=== PATIENT | female | born 1990 | race Caucasian/White ===

== ENCOUNTER 2022-03-30 16:06 | Inpatient (IN) | payer BC, OTHER ==
[2022-03-30] MEDS ORDERED: LABETALOL 5 MG/ML VIAL MDV IVP STA (16:40)
[2022-03-30] MEDS ORDERED: CITRIC ACID-SODIUM CITRATE 15 ML CUP PO ONE (16:44)
[2022-03-30] MEDS ORDERED: fentaNYL (PF) 50 MCG/ML 2 ML AMP ONE (17:05)
[2022-03-30] MEDS ORDERED: SUCCINYLCHOLINE CHLORIDE 100 MG/5 ML SYR IV ONE (17:05)
[2022-03-30] MEDS ORDERED: OXYTOCIN 10 UNIT/ML 1 ML VIAL ONE (17:05)
[2022-03-30] MEDS ORDERED: GLYCOPYRROLATE 0.2 MG/ML 2 ML VIAL ONE (17:05)
[2022-03-30] MEDS ORDERED: PROPOFOL 10 MG/ML 20 ML VIAL IV ONE (17:05)
[2022-03-30] MEDS ORDERED: ONDANSETRON 4 MG/2 ML VIAL ONE (17:05)
[2022-03-30] MEDS ORDERED: HYDROmorphone (PF) 1 MG/ML ONE (17:05)
[2022-03-30] MEDS ORDERED: MORPHINE SULFATE (PF) 0.3 MG/0.3 ML SYR ONE (17:05)
[2022-03-30] MEDS ORDERED: DEXAMETHASONE SOD PHOSPHATE 10 MG/ML 1 ML VIAL ONE (17:05)
[2022-03-30] MEDS ORDERED: OXYTOCIN 30 UNITS/500 ML NS BAG IV ONE (17:05)
[2022-03-30 17:06] LABS: Basophils # (A) 0.1 k/uL (0-0.2); Basophils % (A) 1 %; Eosinophils # (A) 0.1 k/uL (0-0.7); Eosinophils % (A) 1 %; HCT 37.9 % (34.0-46.0); HGB 12.3 gm/dL (11.4-16.0); Lymphocytes # (A) 1.6 k/uL (1.0-4.8); Lymphocytes % (A) 17 %; MCH 30.5 pg (25.0-35.0); MCHC 32.4 g/dL (31.0-37.0); MCV 94.2 fL (80.0-100.0); Mean Platelet Volume 9.3; Monocytes # (A) 0.5 k/uL (0-1.0); Monocytes % (A) 6 %; Neutrophils # (A) 6.7 k/uL (1.3-7.7); Neutrophils % (A) 73 %; Platelet Count 152 k/uL (150-450); RBC 4.02 m/uL (3.80-5.40); RDW 12.6 % (11.5-15.5); WBC 9.1 k/uL (3.8-10.6)
[2022-03-30 17:13] LABS: ALT 12 U/L (4-34); AST 31 U/L (14-36); African American GFR (CKD) >90 (>60 ml/min/1.73 sqM); Blood Urea Nitrogen 16 mg/dL (7-17); LDH 476 U/L (313-618); Non-African American GFR(CKD) >90 (>60 ml/min/1.73 sqM); Uric Acid 5.4 mg/dL (3.7-7.4)
[2022-03-30 17:14] LABS: INR 0.8 (<1.2); Prothrombin Time 9.4 sec (9.0-12.0)
[2022-03-30] MEDS ORDERED: MAGNESIUM SULFATE-WATER PMX 4 GM in WATER FOR INJECTION 1 100ML.BAG IVPB ONE (17:34)
--- NOTE | 2022-03-30 18:04 | P.HPOB ---
History of Present Illness H&P Date: 03/30/22 Chief Complaint: Severe preeclampsia This is a 31-year-old female 1 para 0 EDC 04/13/2022 at 38 weeks gestation. Patient presented from the office with a breech presentation, blood pressure 160 10. Blood pressure on admission 178/110. IV labetalol was given. Labs were checked. Patient denied headache, visual changes, or right upper quadrant pain. Fetus has been active throughout the . Past medical history significant for anxiety and depression as well as uterine fibroids. Past surgical history finger surgery right middle finger after a dog bite in 2016, wisdom teeth extracted. Current medications labetalol 100 mg twice daily, vitamin daily, baby aspirin daily. ALLERGIES none known. Family history significant for hypertension, thyroid cancer, cardiac disease. Social history patient is a [employer] S[employer] carrier, she denies alcohol tobacco or drug use. Father of the baby Les is involved with the . Obstetric history blood type is O-, rubella status immune. VDRL testing, urine culture, hepatitis B surface antigen, HIV testing, gonorrhea and chlamydia cultures, group B strep cultures all negative. One-hour Glucola 82. On examination patient is 5 foot 4 inches, 164 pounds, blood pressure 178/110, repeat 200/120. Again IV labetalol given. General physical exam is within normal limits. Fundus is obvious E gravid, breech presentation by Joshua's maneuver confirmed by bedside ultrasound, reactive NST. 3+ protein in the urine dipstick, 2+ edema, 2+ reflexes. Impression: 38 week intrauterine , severe preeclampsia by blood pressure parameters, breech presentation. Plan: We will proceed with primary low transverse section. Antibiotic prophylaxis was given. Magnesium sulfate will be given after delivery. All risks and benefits reviewed. Review of Systems Constitutional: Reports as per [facility] Medications and Allergies Home Medications Medication Instructions Recorded Confirmed Type Labetalol [Trandate] 100 mg PO BID 03/30/22 03/30/22 History Allergies Allergy/AdvReac Type Severity Reaction Status Date / Time No Known Allergies Allergy Verified 03/30/22 16:37 Exam Intake and Output 03/30/22 03/30/22 03/30/22 06:59 14:59 22:59 Other: Weight 74.389 kg See dictation under HPI please Results Result Diagrams: 03/30/22 16:51 03/30/22 16:51 Assessment and Plan Assessment: 38 week intrauterine , severe preeclampsia, breech presentation. Plan: For primary low transverse section. All risks and benefits reviewed. Magnesium sulfate to be instituted after delivery. Antibiotics given.
[2022-03-30] MEDS ORDERED: SIMETHICONE 80 MG CHEWABLE PO PRN (18:10)
[2022-03-30] MEDS ORDERED: ONDANSETRON 4 MG/2 ML VIAL IVP PRN (18:10)
[2022-03-30] MEDS ORDERED: diphenhydrAMINE 50 MG CAP PO PRN (18:10)
[2022-03-30] MEDS ORDERED: diphenhydrAMINE 25 MG CAP PO PRN (18:10)
[2022-03-30] MEDS ORDERED: NALOXONE 0.4 MG/ML 1 ML VIAL IV PRN (18:10)
[2022-03-30] MEDS ORDERED: HYDROmorphone PCA 10 MG/50 ML BAG IV PRN (18:10)
[2022-03-30] MEDS ORDERED: ZOLPIDEM 5 MG TAB PO PRN (18:10)
[2022-03-30] MEDS ORDERED: METOCLOPRAMIDE 5 MG/ML 2 ML VIAL IVP PRN (18:10)
[2022-03-30] MEDS ORDERED: diphenhydrAMINE 50 MG/ML 1 ML VIAL IVP PRN ×2 (18:10)
--- NOTE | 2022-03-30 18:10 | P.OP ---
Date of Procedure: 03/30/22 Preoperative Diagnosis: Severe preeclampsia, 38 week , breech presentation Postoperative Diagnosis: Same, nuchal cord 2, 6 cm anterior uterine fibroid Procedure(s) Performed: Primary low transverse section Anesthesia: MECHELLE Surgeon: Melida Koroma Environmental Engineering Assistant #1: Mariia Avila Estimated Blood Loss (ml): 350 IV fluids (ml): 800 Urine output (ml): 150 Pathology: other (Placenta) Condition: stable Disposition: PACU Operative Findings: Liveborn female , nuchal cord 2, breech presentation, scores 9 and 9 Description of Procedure: Patient is brought to the operating suite where a spinal analgesia with Duramorph is attempted per Dr. Raymond. Antibiotics are given. Harrison catheter to direct drainage. Bicitra given. The patient is placed in the dorsal supine position with left lateral uterine displacement. The abdomen is prepped and draped in usual sterile fashion. Upon checking analgesic effect, patient still had very acute pain. Decision was made for general anesthetic. This was performed per the anesthesia staff. A low transverse skin incision is carried down through the skin and subcutaneous tissue which is approximately 2 cm deep. Fascia is isolated, scored, extended bilaterally with curved Garay scissors. Peritoneum is next identified and incised. There is no bowel or bladder involvement. The bladder is low from the operative field, bladder blade is placed. A low transverse uterine incision is made in this is extended with blunt dissection. The 's breech is delivered sacrum anterior. Pinard maneuver is used for lower extremities. The trunk is brought out, Pinard maneuver issues for upper extremities. The infant's head is delivered in a flexed position. Official delivery time of a liveborn female 1727 hours. There is a nuchal cord 2 that was reduced. Infant is then handed to waiting nurses for evaluation where scores of 9 and 9 at one and 5 minutes respectively are given. Placentas delivered manually, it is inspected and noted to be intact with trivascular cord. Infant weighs 6 lbs. 12 oz. or 3070 g. Placenta is sent to pathology for evaluation. Uterus is then externalized and m assaged. It is swept clean with a sterile sponge. Ovaries and tubes appear normal. There is a 6 cm anterior uterine fibroid that is noted as well. Uterus is closed in a double thickness layer with 0 Vicryl suture, first layer running locking, second layer imbricated. Bilateral gutters are inspected and cleaned. Uterus is massaged. It is gently placed back into the abdominal cavity after the abdomen is suctioned with suction on guard posterior to the uterus. Hemostasis is excellent. Peritoneum is allowed to close by secondary intention. The fascia is closed in a running stitch of 0 Vicryl with over ligation in the midline. Subcutaneous tissue is reapproximated with 3-0 Vicryl in a running stitch. 4-0 undyed Monocryl is used for final skin closure. Steri-Strips and Mastisol are applied to the wound. Urine is noted to be draining clear in the Harrison tube. Patient is brought back to the recovery room in good condition with a blood pressure of 114/55, pulse 60, 99% O2 saturation. Admitting labs including all preeclampsia labs are within normal limits. Magnesium sulfate 4 g loading doses given with a 2 g maintenance dose for 24 hours.
[2022-03-30] MEDS ORDERED: LACTATED RINGERS 1,000 ML IV SCH (18:15)
[2022-03-30] MEDS: MAGNESIUM SULFATE-WATER PMX 20 GM in WATER FOR INJECTION 1 500ML.BAG IV SCH (18:45)
[2022-03-30] MEDS: KETOROLAC 15 MG/ML 1 ML VIAL IVP SCH (19:08)
[2022-03-30] MEDS ORDERED: LABETALOL 5 MG/ML VIAL MDV IVP PRN ×3 (19:31)
[2022-03-30] MEDS ORDERED: hydrALAZINE HCL 20 MG/ML 1 ML VIAL IVP PRN (19:31)
[2022-03-31] MEDS: MAGNESIUM SULFATE-WATER PMX 20 GM in WATER FOR INJECTION 1 500ML.BAG IV SCH ×2 (05:17→15:56)
[2022-03-31] MEDS ORDERED: Rhogam IMMUNE GLOBULIN 1,500 UNIT/1 ML IM ONE (05:20)
[2022-03-31] MEDS ORDERED: KETOROLAC 15 MG/ML 1 ML VIAL IVP SCH (06:00)
--- NOTE | 2022-03-31 07:19 | P.PN ---
Progress Note - Text 03/31 644 31-year-old female status post , spinal was attempted with Duramorph but it was an adequate. The anesthetic was converted to general anesthesia and the patient was intubated for the proceeding. Patient seen and evaluated with a VAS of 0. No other anesthesia related issues noted
[2022-03-31] MEDS: KETOROLAC 15 MG/ML 1 ML VIAL IVP SCH ×3 (07:55→19:49)
[2022-03-31] MEDS: SENNOSIDES-DOCUSATE SODIUM 1 EACH TAB PO SCH ×2 (07:56→19:49)
--- NOTE | 2022-03-31 08:30 | P.PN ---
Subjective Progress Note Date: 03/31/22 Principal diagnosis: Postoperative day #1 Denies headache, visual changes, RUQ pain Objective - Vital Signs Vital signs: Vital Signs Temp 97.8 F 03/31/22 08:00 Pulse 82 03/31/22 08:00 Resp 16 03/31/22 08:00 BP 143/89 03/31/22 08:00 Pulse Ox 99 03/31/22 08:00 FiO2 Intake & Output 03/30/22 03/31/22 03/31/22 18:59 06:59 18:59 Intake Total 795 125 Output Total 1765 350 Balance -970 -225 Weight 74.843 kg Intake: IV 295 50 Magnesium Sulfate-Water 50 Pmx 20 gm In Water For Injection 1 500ml.bag @ 2 GM/HR 50 mls/hr IV .Q10H [facility] Rx#:[id number] Magnesium Sulfate-Water 100 Pmx 4 gm In Water For Injection 1 100ml.bag @ 300 mls/hr IVPB ONCE ONE Rx#:[id number] ceFAZolin 2 gm In Sodium 195 Chloride 0.9% 50 ml @ 100 mls/hr IVPB ONCE ONE Rx# :[id number] Intake, IV Titration 500 75 Amount Lactated Ringers 1,000 ml 75 @ 75 mls/hr IV .[id number] [facility] Rx#:[id number] Magnesium Sulfate-Water 500 Pmx 20 gm In Water For Injection 1 500ml.bag @ 2 GM/HR 50 mls/hr IV .Q10H [facility] Rx#:[id number] Output: Urine 1765 350 Other: Voiding Method Indwelling Catheter Indwelling Catheter - Constitutional General appearance: Present: average body habitus, cooperative - EENT Eyes: Present: PERRLA ENT: Present: hearing grossly normal - Neck Neck: Present: normal ROM - Respiratory Respiratory: bilateral: CTA - Cardiovascular Rhythm: regular - Gastrointestinal General gastrointestinal: Present: normal bowel sounds - Neurologic Neurologic: Present: CNII-XII intact - Musculoskeletal Musculoskeletal: Present: strength equal bilaterally - Psychiatric Psychiatric: Present: A&O x's 3, appropriate affect, intact judgment & insight - Labs CBC & Chem 7: 03/30/22 16:51 03/30/22 16:51 Assessment and Plan Assessment: Doing well post operative day #1 Plan: Taper magnesium at 5 PM, off at 6 PM. Procardia XL 60 mg once daily, to be given now. Continue postoperative care. Discontinue LENS ENGRAVER at 1800 hrs. and advance diet at that time. Continue close maternal monitoring. Time with Patient: Less than 30
[2022-03-31 09:26] LABS: Basophils % (A) 0 %; Eosinophils % (A) 0 %; HCT 33.5 % (34.0-46.0); HGB 11.2 gm/dL (11.4-16.0); Lymphocytes # (A) 1.2 k/uL (1.0-4.8); Lymphocytes % (A) 7 %; MCH 31.3 pg (25.0-35.0); MCHC 33.5 g/dL (31.0-37.0); MCV 93.3 fL (80.0-100.0); Mean Platelet Volume 9.1; Monocytes # (A) 0.8 k/uL (0-1.0); Monocytes % (A) 5 %; Neutrophils # (A) 13.9 k/uL (1.3-7.7); Neutrophils % (A) 87 %; Platelet Count 149 k/uL (150-450); RDW 12.6 % (11.5-15.5); WBC 16.1 k/uL (3.8-10.6)
[2022-03-31] MEDS: IBUPROFEN 600 MG TAB PO SCH ×3 (10:52→20:57)
[2022-03-31] MEDS: ACETAMINOPHEN TAB 500 MG TAB PO SCH ×2 (11:10→17:02)
[2022-03-31] MEDS: LACTATED RINGERS 1,000 ML IV SCH (20:25)
[2022-03-31] MEDS ORDERED: HYDROcodone/APAP 5-325MG 1 EACH TAB PO PRN (22:30)
[2022-03-31] MEDS ORDERED: ACETAMINOPHEN IV (For NPO) 1,000 MG in EMPTY BAG 1 BAG IVPB STA (22:31)
[2022-04-01] MEDS: KETOROLAC 15 MG/ML 1 ML VIAL IVP SCH ×4 (02:09→19:48)
[2022-04-01] MEDS: ACETAMINOPHEN TAB 500 MG TAB PO SCH ×3 (05:07→19:45)
[2022-04-01] MEDS: SENNOSIDES-DOCUSATE SODIUM 1 EACH TAB PO SCH ×2 (08:53→20:04)
--- NOTE | 2022-04-01 10:13 | P.PNOBGPC ---
Subjective - Subjective Principal diagnosis: Severe preeclampsia Interval history: Magnesium sulfate discontinued last night. Blood pressures stable throughout the night. She did have poor pain control and Branscomb was added. This morning she was found to have been incontinent of loose stool. Patient reports she is not feeling urge to have a bowel movement is having spontaneous loose stools. She denies significant abdominal cramping. She has scant vaginal bleeding. She denies headaches, visual changes, nausea or vomiting. She is tolerating a normal diet. Patient reports: Reports appetite normal, Reports voiding normally, Reports pain poorly controlled, Reports ambulating normally, Denies dizzy ambulation, Denies nauseated : doing well Objective - Vital Signs Latest vital signs: Vital Signs Temp Pulse Resp BP BP Pulse Ox 04/01/22 08:00 99 F 74 16 148/87 98 04/01/22 04:00 98.2 F 77 17 129/77 97 03/31/22 23:54 98.3 F 76 16 127/76 03/31/22 20:00 97.9 F 75 16 109/61 96 03/31/22 18:00 77 16 121/77 100 03/31/22 17:00 78 16 132/85 100 03/31/22 16:00 97.1 F L 68 16 137/86 100 03/31/22 15:00 66 17 128/78 03/31/22 14:00 76 16 140/88 100 03/31/22 13:00 65 16 115/77 100 03/31/22 12:00 98.2 F 69 16 120/81 99 03/31/22 11:00 72 16 127/75 99 Intake and Output 03/31/22 04/01/22 04/01/22 22:59 06:59 14:59 Intake Total 1083.750 Output Total 1175 400 250 Balance -91.250 -400 -250 Intake: IV 200 Magnesium Sulfate-Water 200 Pmx 20 gm In Water For Injection 1 500ml.bag @ 2 GM/HR 50 mls/hr IV .Q10H [facility] Rx#:[id number] Intake, IV Titration 883.750 Amount Lactated Ringers 1,000 ml 300 @ 75 mls/hr IV .[id number] [facility] Rx#:[id number] Magnesium Sulfate-Water 583.750 Pmx 20 gm In Water For Injection 1 500ml.bag @ 2 GM/HR 50 mls/hr IV .Q10H [facility] Rx#:[id number] Output: Urine 1175 400 250 Uretheral (Harrison) 500 Other: # Voids 1 1 # Bowel Movements 1 Weight 73.301 kg - Exam Lungs: bilateral: normal Extremities: Present: normal. Absent: edema Abdomen: Present: normal appearance, soft, tenderness. Absent: distention Incision: Present: normal, dry, intact. Absent: erythematous, edematous Uterus: Present: normal, firm. Absent: tenderness Assessment and Plan (1) 38 weeks gestation of Current Visit: Yes Status: Acute Code(s): Z3A.38 - 38 WEEKS GESTATION OF SNOMED Code(s): 36918339 (2) Severe pre-eclampsia Narrative/Plan: Blood pressure stable on 60 mg of Procardia XL. Asymptomatic without headache, visual changes or other complaints. Current Visit: Yes Status: Acute Code(s): O14.10 - SEVERE PRE-ECLAMPSIA, UNSPECIFIED TRIMESTER SNOMED Code(s): 03781402 (3) Breech presentation Current Visit: Yes Status: Acute Code(s): O32.1XX0 - MATERNAL CARE FOR BREECH PRESENTATION, UNSP SNOMED Code(s): 1381413 (4) S/P section Narrative/Plan: Postop day 2 status post primary low transverse section for breech. Discussed scheduled oral pain medication use. Encourage ambulation. Current Visit: Yes Status: Acute Code(s): Z98.891 - HISTORY OF UTERINE SCAR FROM PREVIOUS SURGERY SNOMED Code(s): 885578860 (5) Diarrhea Narrative/Plan: Several episodes of incontinence of loose stool. May be a medication reaction. We will monitor, antidiarrheal as indicated. Current Visit: Yes Status: Acute Code(s): R19.7 - DIARRHEA, UNSPECIFIED SNOMED Code(s): 71763549
[2022-04-01] MEDS: IBUPROFEN 600 MG TAB PO SCH ×4 (16:21→19:47)
[2022-04-01] MEDS: LACTATED RINGERS 1,000 ML IV SCH ×2 (19:44→23:49)
[2022-04-01] MEDS: MAGNESIUM SULFATE-WATER PMX 20 GM in WATER FOR INJECTION 1 500ML.BAG IV SCH (19:46)
[2022-04-01] MEDS ORDERED: LABETALOL 200 MG TAB PO STA (20:14)
[2022-04-02] MEDS: IBUPROFEN 600 MG TAB PO SCH ×5 (00:19→19:55)
[2022-04-02] MEDS: ACETAMINOPHEN TAB 500 MG TAB PO SCH ×4 (04:19→19:46)
[2022-04-02] MEDS: LACTATED RINGERS 1,000 ML IV SCH (04:34)
[2022-04-02] MEDS: KETOROLAC 15 MG/ML 1 ML VIAL IVP SCH ×3 (04:34→19:47)
[2022-04-02] MEDS: SENNOSIDES-DOCUSATE SODIUM 1 EACH TAB PO SCH ×2 (08:37→19:46)
[2022-04-02] MEDS ORDERED: LABETALOL 200 MG TAB PO STA (08:44)
[2022-04-02] MEDS ORDERED: hydrALAZINE HCL 20 MG/ML 1 ML VIAL IVP STA (09:50)
[2022-04-02] MEDS ORDERED: LOPERAMIDE 2 MG CAP PO PRN (09:51)
--- NOTE | 2022-04-02 09:59 | P.PNOBGPC ---
Subjective - Subjective Principal diagnosis: Postop day 3, severe preeclampsia Interval history: She continues to have very watery "bubbly" stools. She has mild lower abdominal cramping. She was tolerating regular diet without nausea or vomiting. Overall her surgical pain is improving and is controlled with oral pain medications. She was treated with labetalol 200 mg yesterday evening for blood pressures in the 150/90s. This did improve overnight however this morning she had a blood p ressure of 188/100. She received an additional 200 mg of labetalol at that time however blood pressures 45 minutes later remains in the 180s over 110s on both arms. Currently she denies headaches, visual changes, shortness of breath, chest pain, nausea, vomiting. Patient reports: Reports appetite normal, Reports pain well controlled, Reports ambulating normally, Denies voiding normally (With diarrhea), Denies dizzy ambulation, Denies nauseated Adin: doing well Objective - Vital Signs Latest vital signs: Vital Signs Temp Pulse Resp BP BP Pulse Ox 04/02/22 09:45 195/113 189/115 04/02/22 08:34 98.3 F 59 L 16 188/100 04/02/22 04:33 98.2 F 65 16 147/92 99 04/02/22 00:38 98.1 F 76 16 127/93 99 04/01/22 21:36 149/91 04/01/22 20:00 98.1 F 76 16 156/95 99 04/01/22 16:11 98.3 F 98 16 155/90 04/01/22 12:00 98 F 80 16 138/88 Intake and Output 04/01/22 04/02/22 04/02/22 22:59 06:59 14:59 Other: Weight 70.7 kg - Exam Lungs: bilateral: normal Extremities: Present: normal. Absent: edema Abdomen: Present: normal appearance, soft, tenderness. Absent: distention Incision: Present: normal, dry, intact. Absent: erythematous Uterus: Present: normal, firm Assessment and Plan (1) 38 weeks gestation of Current Visit: Yes Status: Acute Code(s): Z3A.38 - 38 WEEKS GESTATION OF SNOMED Code(s): 95545192 (2) Severe pre-eclampsia Current Visit: Yes Status: Acute Code(s): O14.10 - SEVERE PRE-ECLAMPSIA, UNSPECIFIED TRIMESTER SNOMED Code(s): 47730357 (3) Breech presentation Current Visit: Yes Status: Acute Code(s): O32.1XX0 - MATERNAL CARE FOR BREECH PRESENTATION, UNSP SNOMED Code(s): 3528109 (4) S/P section Current Visit: Yes Status: Acute Code(s): Z98.891 - HISTORY OF UTERINE SCAR FROM PREVIOUS SURGERY SNOMED Code(s): 620696507 (5) Diarrhea Current Visit: Yes Status: Acute Code(s): R19.7 - DIARRHEA, UNSPECIFIED SNOMED Code(s): 50400233 Plan: This step day 3 status post primary low transverse section for breech in setting of severe preeclampsia. She received magnesium sulfate for 24 hours postdelivery and this was discontinued approximately 36 hours ago. She initially had good blood pressure control with Procardia 60 60 mg SL 2 AM. Blood pressures began increasing again yesterday evening and she was treated with Procardia. There was some initial improvement and her blood pressures were again significantly elevated this morning. Plan is to restart IV and treat with IV hydralazine per protocol. Labs will be repeated including thyroid. Consult for medical evaluation with sound physicians is placed for further evaluation. EKG ordered. He and is completely asymptomatic otherwise at this time. Concerns for blood pressure and plan for evaluation reviewed with the patient and the father of the baby. All questions are answered.
[2022-04-02] MEDS ORDERED: hydrALAZINE HCL 20 MG/ML 1 ML VIAL IVP PRN ×2 (10:06)
[2022-04-02] MEDS ORDERED: LABETALOL 5 MG/ML VIAL MDV IVP PRN ×2 (10:06)
[2022-04-02 10:14] LABS: ALT 19 U/L (4-34); AST 54 U/L (14-36); African American GFR (CKD) >90 (>60 ml/min/1.73 sqM); Albumin 3.1 g/dL (3.5-5.0); Alkaline Phosphatase 124 U/L (38-126); Anion Gap 3 mmol/L; Blood Urea Nitrogen 15 mg/dL (7-17); Calcium 8.1 mg/dL (8.4-10.2); Carbon Dioxide 24 mmol/L (22-30); Chloride 108 mmol/L (98-107); Glucose 74 mg/dL (74-99); Non-African American GFR(CKD) >90 (>60 ml/min/1.73 sqM); Potassium 4.8 mmol/L (3.5-5.1); Sodium 135 mmol/L (137-145); Total Bilirubin 0.3 mg/dL (0.2-1.3); Total Protein 5.8 g/dL (6.3-8.2); Uric Acid 4.4 mg/dL (3.7-7.4)
[2022-04-02 10:56] LABS: HCT 34.4 % (34.0-46.0); HGB 11.3 gm/dL (11.4-16.0); MCH 31.3 pg (25.0-35.0); MCHC 32.8 g/dL (31.0-37.0); MCV 95.4 fL (80.0-100.0); Mean Platelet Volume 8.1; Platelet Count 191 k/uL (150-450); RBC 3.61 m/uL (3.80-5.40)
[2022-04-02 11:12] LABS: T4, Free (Free Thyroxine) 0.82 ng/dL (0.78-2.19)
[2022-04-02] MEDS ORDERED: hydrALAZINE HCL 25 MG TAB PO PRN (13:28)
[2022-04-02] MEDS: lisinopriL 10 MG TAB PO SCH (14:11)
--- NOTE | 2022-04-02 14:42 | P.CONS ---
History of Present Illness - Reason for Consult Consult date: 04/02/22 - Chief Complaint HTN - History of Present Illness 31-year-old woman who is 4 days postoperative after for preeclampsia. Medicine consulted for hypertension. Patient has been doing well following her procedure, has no complaints for me today. She denies fevers, chills, nausea, vomiting, chest pain, palpitations, cough, dyspnea, abdominal pain, constipation, dysuria, dyschezia, numbness/weakness of extremities, photophobia, phonophobia. She does report mild headache. In chart review I also see that she's been having watery diarrhea, however, she does not complain of this to me today. Patient has been treated with Procardia 60 mg daily and has had several good blood pressure readings following her , however, in the last 24 hours her blood pressures have been increasing again to as high as 170s over high 90s. She had several doses of IV and by mouth labetalol as well as IV hydralazine with good response. Upon my evaluation today, patient is afebrile, 147/89, heart rate normal, breathing comfortably without accessory muscle use. Today's labs demonstrate mild anemia down to 11.3, otherwise unremarkable, mild hypernatremia to 135, otherwise unremarkable, LFT showed low total protein and low albumin. TSH/free T4 was 7.5/0.82. No imaging to review. All Systems reviewed and pertinent positives and negatives noted in HPI, all other symptoms are negative Gen: in no apparent distress, resting comfortably in bed Eyes: PERRL, no scleral injection or icterus HENT: normocephalic, atraumatic, good hearing acuity, moist mucous membranes Neck: no tracheal deviation, full range of motion Resp: good air exchange, breathing comfortably with no accessory muscle use, no tactile fremitus, clear to auscultation bilaterally CVS: good distal perfusion x 4, no pitting edema, regular rate and rhythm GI: soft, no tenderness to palpation, periumbilical area, ND, no hepatosplenomegaly : no suprapubic tenderness, no CVAT, liriano catheter not U present MSK: no clubbing, no cyanosis, no noted contractures of extremities Skin: no noted rashes, petechiae; temperature of skin is appropriate Neuro: moving all extremities without signs of weakness, CN II-XII intact Psych: cooperative, euthymic mood, insight and judgment intact Assessment/plan: Hypertension - agree with procardia - added lisinopril - hydralazine 25mg QID PRN for SBP > 150 or DBP > 90 - no immediate causes of secondary HTN identified - no neurological deficits, no kidney dysfunction, no thyroid dysfunction, no medication effects. - continue to monitor BP, may be essential primary HTN versus white coat HTN - if BP is stable on above medication regiment, patient is clear for d/c with PCP f/u for further BP medication titration - would provide BP cuff for patient to log BP at home, eligibility counselor on signs of hypotension prior to dc: lightheadedness, dizziness, weakness/fatigue, etc. Pt is Full Code Past Medical History Past Medical History: No Reported History History of Any Multi-Drug Resistant Organisms: None Reported Past Surgical History: No Surgical Hx Reported Past Anesthesia/Blood Transfusion Reactions: No Reported Reaction Past Psychological History: No Psychological Hx Reported Smoking Status: Never smoker Past Alcohol Use History: None Reported Past Drug Use History: Marijuana - Past Family History Mother Family Medical History: No Reported History Medications and Allergies Home Medications Medication Instructions Recorded Confirmed Type Labetalol [Trandate] 100 mg PO BID 03/30/22 03/30/22 History Allergies Allergy/AdvReac Type Severity Reaction Status Date / Time No Known Allergies Allergy Verified 03/30/22 16:37 Physical Exam Osteopathic Statement: *. No significant issues noted on an osteopathic structural exam other than those noted in the History and Physical/Consult. Vitals: Vital Signs Temp Pulse Resp BP BP Pulse Ox 04/02/22 13:30 147/89 04/02/22 13:00 154/88 04/02/22 12:29 136/84 04/02/22 12:00 133/78 04/02/22 11:45 138/80 04/02/22 11:40 140/80 04/02/22 11:35 138/83 04/02/22 11:30 137/82 04/02/22 11:25 138/83 04/02/22 11:20 132/82 04/02/22 11:15 127/80 04/02/22 10:49 164/79 04/02/22 10:28 174/99 04/02/22 10:12 171/94 04/02/22 09:45 195/113 189/115 04/02/22 08:34 98.3 F 59 L 16 188/100 04/02/22 04:33 98.2 F 65 16 147/92 99 04/02/22 00:38 98.1 F 76 16 127/93 99 04/01/22 21:36 149/91 04/01/22 20:00 98.1 F 76 16 156/95 99 04/01/22 16:11 98.3 F 98 16 155/90 Intake and Output 04/01/22 04/02/22 04/02/22 22:59 06:59 14:59 Other: # Bowel Movements 1 Weight 70.7 kg 70.307 kg Results CBC & Chem 7: 04/02/22 09:51 04/02/22 09:51 Labs: Abnormal Lab Results - Last 24 Hours (Table) 04/02/22 04/02/22 Range/Units 09:51 09:51 RBC 3.61 L (3.80-5.40) m/uL Hgb 11.3 L (11.4-16.0) gm/dL Sodium 135 L (137-145) mmol/L Chloride 108 H (98-107) mmol/L Calcium 8.1 L (8.4-10.2) mg/dL AST 54 H (14-36) U/L Total Protein 5.8 L (6.3-8.2) g/dL Albumin 3.1 L (3.5-5.0) g/dL TSH 7.500 H (0.465-4.680) mIU/L
[2022-04-02] MEDS: MAGNESIUM SULFATE-WATER PMX 20 GM in WATER FOR INJECTION 1 500ML.BAG IV SCH ×2 (19:46→19:47)
[2022-04-03] MEDS: IBUPROFEN 600 MG TAB PO SCH ×2 (00:13→04:39)
[2022-04-03] MEDS: MAGNESIUM SULFATE-WATER PMX 20 GM in WATER FOR INJECTION 1 500ML.BAG IV SCH (00:13)
[2022-04-03] MEDS: LACTATED RINGERS 1,000 ML IV SCH ×2 (04:45→07:26)
[2022-04-03] MEDS: ACETAMINOPHEN TAB 500 MG TAB PO SCH ×3 (04:45→08:35)
[2022-04-03] MEDS: SENNOSIDES-DOCUSATE SODIUM 1 EACH TAB PO SCH ×2 (07:27→07:28)
[2022-04-03] MEDS: lisinopriL 10 MG TAB PO SCH (08:34)
[2022-04-03 08:40] VITALS: BP 142/89; PULSE 85; RESP 15; TEMP 98.2
--- NOTE | 2022-04-03 09:25 | P.PN ---
Subjective Progress Note Date: 04/03/22 Pt has no new complaints today. BPs are stable, still a bit high. She will f/u with PCP. Gen: in no apparent distress, resting comfortably in bed Eyes: PERRL, no scleral injection or icterus HENT: normocephalic, atraumatic, good hearing acuity, moist mucous membranes Neck: no tracheal deviation, full range of motion Resp: good air exchange, breathing comfortably with no accessory muscle use, no tactile fremitus, clear to auscultation bilaterally CVS: good distal perfusion x 4, no pitting edema, regular rate and rhythm GI: soft, no tenderness to palpation, periumbilical area, ND, no hepatosplenom egaly : no suprapubic tenderness, no CVAT, liriano catheter not U present MSK: no clubbing, no cyanosis, no noted contractures of extremities Skin: no noted rashes, petechiae; temperature of skin is appropriate Neuro: moving all extremities without signs of weakness, CN II-XII intact Psych: cooperative, euthymic mood, insight and judgment intact Assessment/plan: Hypertension - agree with procardia - added lisinopril - hydralazine 25mg QID PRN for SBP > 150 or DBP > 90 - no immediate causes of secondary HTN identified - no neurological deficits, no kidney dysfunction, no thyroid dysfunction, no medication effects. - continue to monitor BP, may be essential primary HTN versus white coat HTN - if BP is stable on above medication regiment, patient is clear for d/c with PCP f/u for further BP medication titration - would provide BP cuff for patient to log BP at home, program counselor on signs of hypotension prior to dc: lightheadedness, dizziness, weakness/fatigue, etc. Pt is Full Code Objective - Vital Signs Vital signs: Vital Signs Temp 98.2 F 04/03/22 08:35 Pulse 85 04/03/22 08:35 Resp 15 04/03/22 08:35 BP 142/89 04/03/22 08:35 Pulse Ox 99 04/03/22 08:35 FiO2 Intake & Output 04/02/22 04/03/22 04/03/22 18:59 06:59 18:59 Weight 70.307 kg Other: # Bowel Movements 1 - Labs CBC & Chem 7: 04/02/22 09:51 04/02/22 09:51 Labs: Abnormal Lab Results - Last 24 Hours (Table) 04/02/22 04/02/22 Range/Units 09:51 09:51 RBC 3.61 L (3.80-5.40) m/uL Hgb 11.3 L (11.4-16.0) gm/dL Sodium 135 L (137-145) mmol/L Chloride 108 H (98-107) mmol/L Calcium 8.1 L (8.4-10.2) mg/dL AST 54 H (14-36) U/L Total Protein 5.8 L (6.3-8.2) g/dL Albumin 3.1 L (3.5-5.0) g/dL TSH 7.500 H (0.465-4.680) mIU/L
--- NOTE | 2022-04-03 10:01 | P.DS ---
Providers Date of admission: 03/30/22 16:06 Expected date of discharge: 04/03/22 Attending physician: Melida Koroma Consults: 04/02/22 09:52 Consult Physician Stat Consulting Provider: Ashlie Physician Consult Reason/Comments: Severe HTN Do you want consulting provider notified?: Yes Primary care physician: Stated None - Discharge Diagnosis(es) (1) 38 weeks gestation of Current Visit: Yes Status: Acute (2) Severe pre-eclampsia Current Visit: Yes Status: Acute (3) Breech presentation Current Visit: Yes Status: Acute (4) S/P section Current Visit: Yes Status: Acute (5) Diarrhea Current Visit: Yes Status: Acute Hospital Course: This is a 31-year-old 1 now para 1 woman who was admitted at 38 weeks gestation with severe preeclampsia based on blood pressure criteria. She was known to be in the breech presentation. She underwent primary low transverse section under general anesthetic for breech presentation. General anesthetic due inadequate spinal anesthetic. Following delivery the patient didn't needed IV antihypertensives to bring her blood pressure down. She received 24 hours of magnesium sulfate for seizure prophylaxis. On postoperative day #1 the magnesium sulfate was discontinued after 24 hours. Procardia XL 60 mg daily was initiated. Her laboratory data was within normal limits. She was asymptomatic. On postoperative day #2 she continued to do well with blood pressures normalizing however by postoperative day #3 she had some significant increase in blood pressures that were initially treated with addition of by mouth labetalol but eventually requiring IV hydralazine. Labs were repeated and again were essentially normal. Medicine was consulted for hypertension and recommendation to add lisinopril was made. By postoperative day 4 her blood pressures are now within the 130s to 140s over 80s. She remains asymptomatic. Her incision is well healing and she has scant vaginal bleeding. Specifically she denies headaches, visual changes, nausea, vomiting, shortness of breath, chest pain or increase in swelling. She did have some significant diarrhea on postop day 2 and 3 which is now improved. She was discharged home with close follow-up of blood pressures in the office and hypertensive precautions. Procedures: Primary low transverse section Patient Condition at Discharge: Good Plan - Discharge Summary New Discharge Prescriptions: New Ibuprofen [Motrin] 600 mg PO Q6H PRN #30 tab PRN Reason: Pain NIFEdipine XL [Procardia XL] 60 mg PO DAILY #30 tab Acetaminophen Tab [Tylenol] 1,000 mg PO Q6H tab lisinopriL [Zestril] 10 mg PO DAILY #30 tab Discontinued Labetalol [Trandate] 100 mg PO BID Discharge Medication List Acetaminophen Tab [Tylenol] 1,000 mg PO Q6H tab 04/03/22 [Rx] Ibuprofen [Motrin] 600 mg PO Q6H PRN #30 tab 04/03/22 [Rx] NIFEdipine XL [Procardia XL] 60 mg PO DAILY #30 tab 04/03/22 [Rx] lisinopriL [Zestril] 10 mg PO DAILY #30 tab 04/03/22 [Rx] Follow up Appointment(s)/Referral(s): Melida Koroma MD [STAFF PHYSICIAN] - 04/05/22 Activity/Diet/Wound Care/Special Instructions: Follow-up in 2 days in the office. Call the office with any concerning signs or symptoms including headaches, visual changes, shortness of breath, chest pain, fever greater than 100.5, severe abdominal pain, heavy vaginal bleeding, signs of wound infection, increased swelling or redness of the lower extremities, signs of depression. No driving for 2 weeks after surgery. No heavy lifting or vigorous activity until reevaluated in the office. No intercourse for 6 weeks after delivery. Discharge Disposition: HOME SELF-CARE
== END 2022-04-03 12:45 | disposition home or self-care (01) | DRG 787 ==
LOC: 4FBP 16:06
PROVIDERS: ADMIT Obstetrics & Gynecology; ATTEND Obstetrics & Gynecology
PROC: 4A0HXCZ Measurement of Products of Conception, Cardiac Rate, External Approach (ICD-10-PCS; 2022-03-30)
PROC: 10D00Z1 Extraction of Products of Conception, Low, Open Approach (ICD-10-PCS; principal; 2022-03-30 17:25)
DX: O14.14 Severe pre-eclampsia complicating childbirth (principal); E87.0 Hyperosmolality and hypernatremia; O69.81X0 Labor and delivery complicated by cord around neck, without compression, not applicable or unspecified; O34.13 Maternal care for benign tumor of corpus uteri, third trimester; O32.1XX0 Maternal care for breech presentation, not applicable or unspecified; O90.81 Anemia of the puerperium; O99.344 Other mental disorders complicating childbirth; F41.9 Anxiety disorder, unspecified; D64.9 Anemia, unspecified; O99.63 Diseases of the digestive system complicating the puerperium; F32.A Depression, unspecified; R19.7 Diarrhea, unspecified; O99.284 Endocrine, nutritional and metabolic diseases complicating childbirth; D25.9 Leiomyoma of uterus, unspecified; Z37.0 Single live birth; Z3A.38 38 weeks gestation of pregnancy; Z79.82 Long term (current) use of aspirin
CPT/HCPCS: 80053; 82565; 83615; 84439; 84443; 84450; 84460; 84520; 84550; 85025; 85027; 85461; 85610; 85730; 86850; 86870; 86880; 86900; 86901; 88307; 93005